=== PATIENT | female | born 1980 | race Caucasian/White ===

== ENCOUNTER 2016-09-21 21:09 | Emergency (ER) | payer MEDICAID ==
--- NOTE | ~2016-09-21 | ER ---
[facility] AGE[facility] 35 Y [address] ROOM: [place] [address] LOCATION: ED ADMIT DATE: 09/21/2016 ER/Outpatient Report DISCHARGE DATE: 09/21/2016 FAMILY PHYSICIAN: Jessika Cuevas MD ATTENDING PHYSICIAN: Scott Figueroa Time of Arrival: 2107 hours. Time of Exam: 2107 hours. CHIEF COMPLAINT: Gastritis flare-up. HISTORY OF PRESENT ILLNESS: The patient arrived per [facility]. She has an IV in her left hand. She got fentanyl 50 mcg IV en route. The patient states she has had upper abdominal pain constantly for the last 7 days. It has gotten worse today. It is a sharp stabbing type pain. She has been nauseated, no vomiting. Has had diarrhea for the last week. Last diarrhea stool today was at 4:00 p.m. She has felt feverish and chills at times and had urinary frequency, but no pain with urination. She states she has an appointment to see Dr. Cuevas on or Wednesday this week. ALLERGIES: DARVOCET, ASA, and HYDROCODONE. CURRENT MEDICATIONS: On the chart and reviewed by me. PAST MEDICAL HISTORY: Hypothyroidism, seizures, migraine headaches, GERD, obesity, bipolar, and gastritis. PAST SURGERIES: Surgery to the right ring finger, left ankle and foot, appendectomy, and cholecystectomy. SOCIAL HISTORY: Last menstrual period was September 12. She does smoke a pack per day and has since the age of 16. Denies use of drugs and alcohol. REVIEW OF SYSTEMS: All negative other than those mentioned in the HPI. PHYSICAL EXAMINATION: PATIENT'S NAME: ALYSA PEREZ [facility] AGE: 35 Y [address] ROOM: [place] [address] LOCATION: ED ADMIT DATE: 09/21/2016 ER/Outpatient Report DISCHARGE DATE: 09/21/2016 FAMILY PHYSICIAN: Jessika Cuevas MD ATTENDING PHYSICIAN: Scott Figueroa VITAL SIGNS: She weighs 98 kg; blood pressure is 116/64; pulse of 105; respirations 20; temperature of 97.5, tympanic; O2 sat is 96% on room air. GENERAL: She is awake, alert, and oriented x4. SKIN: [place], warm, and dry. RESPIRATIONS: Even and nonlabored. Lung sounds are clear throughout. HEART: Regular rate and rhythm. ABDOMEN: Soft, nondistended. Bowel sounds are present. She is tender in the mid epigastric upper abdominal area. LABORATORY DATA AND X-RAYS: Lab work was done. CBC is within normal limits. Chem panel is within normal limits. Three-way abdominal x-ray was completed and reviewed with Dr. Figueroa. This shows increased stool pattern. EMERGENCY DEPARTMENT COURSE: The patient was given Reglan 10 mg IV. She was able to get some rest here in the ER. Vital signs remained stable. IMPRESSION: Gastritis. PLAN: Home, rest, fluids. Continue current medications. Follow up with Dr. Cuevas on as scheduled. The patient verbalized understanding. ALEXIS CRUZ APRN FOR MD RAMANDEEP KING/danielito /[id number] d: 09/22/16 0232 t: 10/30/16 1156, OUTPATIENT REPORT
[~2016-09-21 21:09] MED LIST changes: -NICOTINE PATCH1 EAC1 TOP; -SEROQUEL100 MG PO
[2016-09-21 21:36] LABS: BASOPHIL % 0.3 %; EOSINOPHIL # 0.2 K/uL (0.0-0.5); EOSINOPHIL % 1.5 %; HEMATOCRIT 40.8 % (33.0-46.0); HEMOGLOBIN 13.3 g/dL (11.0-15.0); IMMATURE GRANULOCYTE % 0.4 %; LYMPHOCYTE # 2.1 K/uL (0.8-4.0); LYMPHOCYTE % 20.7 %; MCH 29.4 pg (27.0-34.0); MCHC 32.6 gm/dL (32.0-36.5); MCV 90.1 fl (83.0-98.0); MONOCYTE # 0.8 K/uL (0.0-1.0); MONOCYTE % 7.9 %; MPV 10.4 fl (9.4-12.4); NEUTROPHIL # (ANC) 7.1 K/uL (1.8-7.8); NEUTROPHIL % 69.2 %; NRBC % 0 /100WBC (0-0.00); PLATELET COUNT 250 K/uL (150-450); RBC 4.53 M/uL (3.50-5.50); WBC 10.2 K/uL (4.0-11.0)
[2016-09-21 22:00] LABS: ALBUMIN 3.5 gm/dL (3.5-5.0); ANION GAP 11.6 (10.0-19.0); CALCIUM 8.5 mg/dL (8.5-10.5); CREATININE 1.3 mg/dL (0.5-1.1); POTASSIUM 3.6 mMol/L (3.7-5.1); TOTAL BILIRUBIN 0.3 mg/dL (0.0-1.5); TOTAL PROTEIN 6.8 g/dL (6.0-8.4)
[2016-10-08] MEDS ORDERED: SEROQUEL100 MG PO (20:35)
[2016-10-11] MEDS ORDERED: ATIVAN 1 MG1 MG PO (11:35)
[2016-10-11] MEDS ORDERED: NICOTINE PATCH1 EAC1 TOP (11:47)
[2016-10-11] MEDS ORDERED: MINIPRESS2 MG PO (12:12)
== END 2016-09-21 22:16 | disposition disaster alternative care site (69) ==
LOC: GMED 21:09
PROVIDERS: Emergency Medicine
DX: K29.70 Gastritis, unspecified, without bleeding (principal); E03.9 Hypothyroidism, unspecified; K21.9 Gastro-esophageal reflux disease without esophagitis; F31.9 Bipolar disorder, unspecified; F17.210 Nicotine dependence, cigarettes, uncomplicated; Z90.49 Acquired absence of other specified parts of digestive tract; Z98.890 Other specified postprocedural states; Z88.5 Allergy status to narcotic agent; Z88.6 Allergy status to analgesic agent; Z79.899 Other long term (current) drug therapy
CPT/HCPCS: J2765; J3010

== ENCOUNTER → 2016-09-21 | Outpatient (CLI) | payer MEDICAID ==
[~2016-09-21] MED LIST: ADVIL200 M2 PO; AMBIEN5 MG PO; ATARAX10 MG PO; ATARAX25 MG PO; ATIVAN 1 MG1 MG PO; BUSPAR10 MG PO; BUSPIRONE HCL15 MG PO; CARAFATE1 GM PO; DESYREL100 MG PO; INDERAL40 MG PO; KEFLEX500 MG PO; LATUDA60 MG PO; LATUDA80 MG PO; LEVOTHROID (S100 MCG PO; MINIPRESS1 M1 PO; MINIPRESS1 MG PO; MINIPRESS2 MG PO; MYCOSTATIN(NYST15 GM TOP; Minipress PO; NICODERM (HABIT14 MG TRANS; NICODERM/HABITR21 MG TRANS; NICOTINE PATCH1 EAC1 TOP; ONDANSETRON ODT4 MG SL; PERCOCET 5-3251 EACH PO; PROTONIX20 MG PO; PROTONIX40 MG PO; PROZAC10 MG PO; PROZAC20 MG PO; PROZAC40 MG PO; ROXICET 5-325500 ML PO; SEROQUEL100 MG PO; SINEQUAN25 MG PO; SYNTHROID100 MCG PO; TOPAMAX100 MG PO; TOPAMAX50 MG PO; TRAZODONE HCL100 MG PO; WELLBUTRIN SR150 MG PO; WELLBUTRIN XL150 MG PO
== END | disposition disaster alternative care site (69) ==
LOC: GAMB 20:48
DX: R10.84 Generalized abdominal pain (principal); R11.0 Nausea
CPT/HCPCS: A0425; A0427

== ENCOUNTER 2016-10-25 16:05 | Emergency (ER) | payer MEDICAID ==
--- NOTE | ~2016-10-25 | ER ---
PATIENT'S NAME: ALYSA PEREZ [facility] AGE: 35 Y [address] ROOM: [place] [address] LOCATION: [facility] WITH [facility] ADMIT DATE: 10/25/2016 ER/Outpatient Report DISCHARGE DATE: 10/25/2016 FAMILY PHYSICIAN: Noah Terry MD ATTENDING PHYSICIAN: Segundo Jaquez Time of Arrival: 1605 hours. Time of Evaluation: 1605 hours. CHIEF COMPLAINT: Head injury. HISTORY OF PRESENT ILLNESS: This is a 35-year-old female, who presents to the ER. States that she bent down and when she brought her head up, she hit the top of her head on her refrigerator door. She states that, she believes that she lost consciousness. She denies any neck or back pain. She states she did take Tylenol about 45 minutes prior to arrival. She denies any other problems at this time. She has had no nausea, no vomiting, no recent illnesses. MEDICATIONS: Please see medication list in nurse's notes. PAST MEDICAL HISTORY: Please see nurse's notes. SOCIAL HISTORY: Smokes 1 pack a day for the last 25 years. REVIEW OF SYSTEMS: All systems reviewed were negative with the exception of those discussed in the HPI. PHYSICAL EXAMINATION: VITAL SIGNS: Height 5 feet 3 inches stated, weight 99.6 kg taken, blood pressure is 123/59, pulse 88, respirations 20, temperature 98.2 degrees tympanically, and saturations 98% on room air. Jose Guadalupe Coma Score is 15. GENERAL: Alert, slightly anxious appearing female, in no acute distress. HEENT: Head: Normocephalic. Eyes: Pupils are equal and reactive to light. Ears: TMs display good light reflexes bilaterally. Nose: Turbinates pink with no drainage. Throat: No exudates or erythema. She does display moist mucous membranes. LUNGS: Clear to auscultation bilaterally. HEART: Regular rate and rhythm. MUSCULOSKELETAL: She has no tenderness over cervical, thoracic, or lumbar PATIENT'S NAME: ALYSA PEREZ [facility] AGE: 35 Y [address] ROOM: [place] [address] LOCATION: [facility] ADMIT DATE: 10/25/2016 ER/Outpatient Report DISCHARGE DATE: 10/25/2016 FAMILY PHYSICIAN: Noah Terry MD ATTENDING PHYSICIAN: Segundo Jaquez spine. NEURO: Cranial nerves 2 through 12 grossly intact. Gait was not observed. LABORATORY DATA: None were done. CT scan of the head was negative. IMPRESSION: Head injury. ASSESSMENT AND PLAN: The patient rested comfortably her entire stay. We will dismiss her to home. She needs to continue to push fluids. Ice any sore areas. We will send her home with the head injury handout and she should see her primary care physician if needed. The patient understands and agrees with care. ARACELIS ARRINGTON PA-C FOR DO RADHA LYNCH/modl /[id number] d: t: 10/30/16 1206, OUTPATIENT REPORT
== END 2016-10-25 17:10 | disposition disaster alternative care site (69) ==
LOC: GACC 16:05 → GMED 16:05 → GACC 16:05
DX: S09.90XA Unspecified injury of head, initial encounter (principal); F17.210 Nicotine dependence, cigarettes, uncomplicated; Z88.6 Allergy status to analgesic agent; Z88.5 Allergy status to narcotic agent; Z88.8 Allergy status to other drugs, medicaments and biological substances; Z79.899 Other long term (current) drug therapy; W22.09XA Striking against other stationary object, initial encounter

== ENCOUNTER → 2016-10-25 | Outpatient (CLI) | payer MEDICAID ==
[~2016-10-25] MED LIST changes: +NICOTINE PATCH1 EAC1 TOP; +SEROQUEL100 MG PO
== END | disposition disaster alternative care site (69) ==
LOC: GAMB 15:51
DX: R51 Headache (principal); F60.3 Borderline personality disorder; R53.83 Other fatigue; Z88.6 Allergy status to analgesic agent; W22.8XXA Striking against or struck by other objects, initial encounter
CPT/HCPCS: A0425; A0429

== ENCOUNTER 2016-10-28 16:53 | Emergency (ER) | payer MEDICAID ==
--- NOTE | ~2016-10-28 | ER ---
PATIENT'S NAME: ALYSA PEERZ [facility] AGE: 35 Y [address] ROOM: [place] [address] LOCATION: [facility] ADMIT DATE: 10/28/2016 ER/Outpatient Report DISCHARGE DATE: 10/28/2016 FAMILY PHYSICIAN: Noah Terry MD ATTENDING PHYSICIAN: Segundo Jaquez Time of Arrival: 1645 hours. Time of Exam: 1645 hours. CHIEF COMPLAINT: Left-sided abdominal pain. HISTORY OF PRESENT ILLNESS: The patient states she was sitting on the couch at approximately 3:30 this afternoon when she developed left lower quadrant abdominal pain. She has been nauseated, no vomiting. Denies having fever. Had a normal bowel movement today. Describes the pain as being sharp. ALLERGIES: DARVOCET AND HYDROCODONE. CURRENT MEDICATIONS: On the chart and reviewed by me. PAST MEDICAL HISTORY: Gastritis and bipolar. PAST SURGERIES: Cholecystectomy and appendectomy. SOCIAL HISTORY: She smokes 1 pack per day. Denies use of drugs and alcohol. REVIEW OF SYSTEMS: Negative other than those mentioned in the HPI. PHYSICAL EXAMINATION: VITAL SIGNS: Blood pressure is 121/80, pulse of 120, respirations 20, temperature of 96.5 tympanic, and O2 saturation was 98% on room air. GENERAL: She is awake, alert, and oriented x4. SKIN: [place], warm, and dry. She is crying and tearful. LUNGS: Lung sounds are clear throughout. HEART: Regular rate and rhythm. ABDOMEN: Soft, nondistended. Bowel sounds are present. She is tender to palpate in the left lower quadrant area. PATIENT'S NAME: ALYSA PEREZ [facility] AGE: 35 Y [address] ROOM: [place], [place] [address] LOCATION: [facility] ADMIT DATE: 10/28/2016 ER/Outpatient Report DISCHARGE DATE: 10/28/2016 FAMILY PHYSICIAN: Noah Terry MD ATTENDING PHYSICIAN: Segundo Jaquez EMERGENCY ROOM COURSE: Saline lock was initiated. She was given Zofran 4 mg IV. CBC is within normal limits. Chem panel is within normal limits. Serum is negative. Clean-catch UA showed 25 leukocytes, negative bacteria, and only 0- 2 white blood cells. KUB showed diffuse gas pattern. The patient was given Toradol 15 mg IV and Reglan 10 mg IV. Fluids of normal saline were started at a wide-open rate. She was monitored. Vital signs remained stable. She reports her pain has decreased. She is able to move around more freely on the cart without increased pain. IMPRESSION: Abdominal pain. PLAN: Home, rest fluids. Continue her current medications. If symptoms persist or worsen, she should follow up with her primary provider. She verbalized understanding. ALEXIS CRUZ APRN FOR DO RAMANDEEP LYNCH/danielito /[id number] d: 10/28/16 2256 t: 10/31/16 1216, OUTPATIENT REPORT
[2016-10-28 17:14] LABS: BASOPHIL # 0.1 K/uL (0.0-0.2); BASOPHIL % 0.6 %; EOSINOPHIL # 0.3 K/uL (0.0-0.5); HEMATOCRIT 40.4 % (33.0-46.0); HEMOGLOBIN 13.3 g/dL (11.0-15.0); IMMATURE GRANULOCYTE # 0.1 K/uL (0.0-0.3); IMMATURE GRANULOCYTE % 0.5 %; LYMPHOCYTE # 2.9 K/uL (0.8-4.0); LYMPHOCYTE % 26.8 %; MCH 29.9 pg (27.0-34.0); MCHC 32.9 gm/dL (32.0-36.5); MCV 90.8 fl (83.0-98.0); MONOCYTE # 0.9 K/uL (0.0-1.0); MPV 10.2 fl (9.4-12.4); NEUTROPHIL # (ANC) 6.6 K/uL (1.8-7.8); NEUTROPHIL % 61.1 %; NRBC % 0 /100WBC (0-0.00); PLATELET COUNT 232 K/uL (150-450); RBC 4.45 M/uL (3.50-5.50); RDW-CV 13.6 % (11.9-14.6); WBC 10.7 K/uL (4.0-11.0)
[2016-10-28 17:30] LABS: ALBUMIN 3.4 gm/dL (3.5-5.0); CALCIUM 8.2 mg/dL (8.5-10.5); CREATININE 1.2 mg/dL (0.5-1.1); TOTAL BILIRUBIN 0.2 mg/dL (0.0-1.5); TOTAL PROTEIN 6.7 g/dL (6.0-8.4)
[2016-10-28 18:13] LABS: BILIRUBIN URINE NEGATIVE (NEGATIVE); BLOOD URINE NEGATIVE /UL (NEGATIVE); COLOR URINE YELLOW (YELLOW); GLUCOSE URINE NEGATIVE (NEGATIVE); KETONE URINE NEGATIVE (NEGATIVE); LEUKOCYTES URINE 25 /UL (NEGATIVE); NITRITE URINE NEGATIVE (NEGATIVE); PROTEIN URINE NEGATIVE (NEGATIVE); SPEC GRAVITY URINE 1.015 (1.003-1.035); TURBIDITY URINE 1+ (CLEAR); UROBILINOGEN URINE NORMAL (NORMAL)
[2016-10-28 18:24] LABS: BACTERIA URINE NEGATIVE (NEGATIVE); MUCUS URINE 1+ (NEGATIVE); RBC URINE NEGATIVE #/HPF (NEGATIVE); WBC URINE 0-2 #/HPF (NEGATIVE)
== END 2016-10-28 18:45 | disposition disaster alternative care site (69) ==
LOC: GMED 16:53
PROVIDERS: Nurse Practitioner Family
DX: R10.32 Left lower quadrant pain (principal); F17.210 Nicotine dependence, cigarettes, uncomplicated; F31.9 Bipolar disorder, unspecified; Z88.5 Allergy status to narcotic agent; Z88.6 Allergy status to analgesic agent; Z90.49 Acquired absence of other specified parts of digestive tract
CPT/HCPCS: J1885; J2405; J2765; J7030

== ENCOUNTER → 2016-10-28 | Outpatient (CLI) | payer MEDICAID | END | disposition disaster alternative care site (69) | LOC: GAMB 16:33 | DX: R10.84 Generalized abdominal pain (principal); F60.3 Borderline personality disorder; R10.31 Right lower quadrant pain; R10.32 Left lower quadrant pain; Z79.891 Long term (current) use of opiate analgesic; Z79.899 Other long term (current) drug therapy | CPT/HCPCS: A0425; A0429 ==

== ENCOUNTER → 2016-11-03 | Outpatient (CLI) | payer MEDICAID | END | disposition disaster alternative care site (69) | LOC: GAMB 20:53 | DX: R10.84 Generalized abdominal pain (principal); K56.60 Unspecified intestinal obstruction | CPT/HCPCS: A0425; A0427; J2405; J7030 ==

== ENCOUNTER → 2016-11-17 | Outpatient (CLI) | payer MEDICAID | END | disposition disaster alternative care site (69) | LOC: GAMB 17:12 | DX: R10.9 Unspecified abdominal pain (principal); F31.9 Bipolar disorder, unspecified; Z88.5 Allergy status to narcotic agent; Z87.19 Personal history of other diseases of the digestive system; Z79.899 Other long term (current) drug therapy | CPT/HCPCS: A0425; A0429 ==

== ENCOUNTER → 2016-11-22 | Outpatient (CLI) | payer MEDICAID | END | disposition disaster alternative care site (69) | LOC: GAMB 15:53 | DX: R07.89 Other chest pain (principal); F31.9 Bipolar disorder, unspecified; F60.3 Borderline personality disorder; R00.0 Tachycardia, unspecified; Z87.19 Personal history of other diseases of the digestive system; Z79.899 Other long term (current) drug therapy; Z88.5 Allergy status to narcotic agent; Z88.8 Allergy status to other drugs, medicaments and biological substances ==

== ENCOUNTER → 2016-11-25 | Outpatient (CLI) | payer MEDICAID | END | disposition disaster alternative care site (69) | LOC: GAMB 15:59 | DX: R07.89 Other chest pain (principal); M54.2 Cervicalgia; F60.3 Borderline personality disorder; F31.9 Bipolar disorder, unspecified; Z79.899 Other long term (current) drug therapy; Z88.6 Allergy status to analgesic agent; Z88.8 Allergy status to other drugs, medicaments and biological substances ==